=== PATIENT | male | born 1945 | race Caucasian/White ===

== ENCOUNTER 2016-12-18 21:31 | Emergency (ER) | payer OTHER, BC ==
[~2016-12-18] VITALS: Ht 172.7 cm; Wt 77.0 kg
[~2016-12-18 21:31] MED LIST: ALLERGY MED25 MG PO; ASPIRIN BUFFER325 MG PO; ASPIRIN325 MG PO; BENZONATATE100 MG PO; CELEBREX200 MG PO; CITALOPRAM HBR20 M1 PO; COMPAZINE10 MG PO; DARVON65 MG PO; EFFIENT10 MG PO; HYDROPHOR OINT454 GM TP; HYDROXYZINE HCL25 MG PO; LASIX40 MG PO; LIPITOR20 MG PO; LIPITOR40 MG PO; LOPRESSOR50 MG PO; MEN PHOR ANTI I S; METOPROLOL TART50 MG PO; NOVOLIN N100 UNIT/1 IM; OMEPRAZOLE20 MG PO; PLAVIX75 MG PO; PRINIVIL10 MG PO; PROAIR HFA8.5 GM IH; RANITIDINE HCL150 MG PO; ZAROXOLYN,DIULO5 MG PO; ZESTRIL,PRINIVI10 MG PO; ZESTRIL2.5 MG PO
[2016-12-18 23:11] LABS: HEMATOCRIT 34.1 % (38.0-50.0); MCH 30.4 PG (29.0-34.0); MCHC 33.1 G/DL (30.0-36.0); MCV 91.7 FL (86-99); MEAN PLAT.VOLUME 9.3 uM^3 (9.0-12.4); PLATELET COUNT 214 K/uL (156-360); RBC DIS.WIDTH-CV 11.8 % (11.8-14.6); RBC DIS.WIDTH-SD 39.8 % (39-53); RED BLOOD COUNT 3.72 M/uL (4.00-5.50); WHITE BLOOD COUNT 9.2 K/uL (4.1-10.2)
[2016-12-18 23:19] LABS: CHLORIDE 103 mEq/L (99-109); POTASSIUM 4.3 mEq/L (3.7-5.4); SODIUM 140 mEq/L (136-147)
[2016-12-18 23:21] LABS: GLUCOSE 106 mg/dL (70-99)
[2016-12-18 23:23] LABS: ANION GAP 13 MEQ/L (2-14); TOTAL BILIRUBIN 0.7 mg/dL (0.0-1.0)
[2016-12-18 23:25] LABS: ALKALINE PHOSPHATASE 70 IU/L (3-129); GFR ESTIMATE (CALCULATED) 53 mL/min/
[2016-12-18 23:26] LABS: UREA NITROGEN (BUN) 26 mg/dL (9-23)
[2016-12-18 23:28] LABS: LIPASE 23 U/L (1.0-51.0)
[2016-12-19] MEDS ORDERED: ZOFRAN ODT4 MG PO (00:30)
[2016-12-19] MEDS ORDERED: FLAGYL500 MG PO (00:30)
[2016-12-19] MEDS ORDERED: CIPRO500 MG PO (00:30)
[2016-12-19 00:46] VITALS: BP 160/81
== END 2016-12-19 00:48 | disposition home or self-care (01) ==
LOC: EME 21:31
PROVIDERS: Physician Assistant
DX: K52.9 Noninfective gastroenteritis and colitis, unspecified (principal); I10 Essential (primary) hypertension; I25.2 Old myocardial infarction
CPT/HCPCS: 74177; 80053; 81003; 83630; 83690; 85027; 87177; 87493; 87506; 99281; 99284; J2405; J7030